=== PATIENT | female | born 1995 | race Caucasian/White ===

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

== ENCOUNTER 2021-03-28 01:25 | Emergency (ER) | payer MEDICAID ==
[~2021-03-28] VITALS: Ht 157.5 cm; Wt 78.0 kg
[2021-03-28] MEDS ORDERED: ACETAMINOPHEN 325MG TABLET PO ONE (02:30)
[2021-03-28 02:40] LABS: BASOPHILS % 0.5 % (0.0-2.0); EOSINOPHILS % 0.6 % (0.0-5.0); HEMATOCRIT. 35.7 % (36.0-48.0); HEMOGLOBIN. 12.4 g/dL (12.0-16.0); LYMPHOCYTES % 21.4 % (20.0-50.0); MEAN CORPUSCULAR HEMOGLOBIN 28.3 pg (28.0-32.0); MEAN CORPUSCULAR VOLUME 81.4 fL (81.0-99.0); MEAN PLATELET VOLUME 9.4 fl (7.4-10.4); MONOCYTES % 5.6 % (2.0-8.0); NEUTROPHILS % 71.9 % (40.0-76.0); PLATELET 181 x1000/uL (130-400); RED BLOOD CELL COUNT 4.39 mill/uL (4.2-5.4); RED CELL DISTRIBUTION WIDTH 13.2 % (11.6-14.6)
[2021-03-28 02:47] LABS: CHLORIDE 107 mEq/L (98-107)
[2021-03-28 03:11] LABS: B-HCG QUANTITATIVE 16577 mIU/mL (<3)
[2021-03-28] MEDS ORDERED: POTASSIUM CHLORIDE 20MEQ TABLET SR PO ONE (03:45)
[2021-03-28 04:30] VITALS: BP 115/49
== END 2021-03-28 05:04 | disposition home or self-care (01) ==
LOC: ER 01:25
DX: O26.891 Other specified pregnancy related conditions, first trimester (principal); R10.31 Right lower quadrant pain; O46.91 Antepartum hemorrhage, unspecified, first trimester; Z98.890 Other specified postprocedural states; Z3A.14 14 weeks gestation of pregnancy
CPT/HCPCS: 36415; 76801; 80053; 81025; 84702; 85025; 86886; 90384; 99285